=== PATIENT | male | born 1950 | race Caucasian/White ===

== ENCOUNTER 2016-09-10 11:56 | Inpatient (IN) | payer OTHER ==
--- NOTE | ~2016-09-10 | CN ---
Consultation Report [facility] [address] [place]. [address] NAME: GUIDO KELLEY : 52 STATUS : ADM Vaishali PAT#: [id number] AGE: 65 ADM/REG DATE : 09/10/16 MR#: [id number] REPORT SERV DATE: 09/11/16 DICTATED BY: JOVANY WILLIAMSON IV DATE: 09/11/16 REPORT STATUS : Draft TRANSCRIBED BY: MODL DATE: 09/11/16 PULMONARY CONSULTATION DATE OF CONSULTATION: 09/11/2016 REASON FOR REQUEST: Hemoptysis and recent pulmonary embolism. HISTORY OF PRESENT ILLNESS: History is obtained from the patient and records. Mr. Kelley is a 65-year-old male with a history of COPD, obstructive sleep apnea, hypoxemia, diabetes mellitus, coronary artery disease, paroxysmal atrial fibrillation, thrombocytopenia, tobacco dependency, status post recent prolonged hospitalization at [facility] for respiratory failure with DVT, pulmonary embolism, MRSA pneumonia, who now presents with hemoptysis. The patient reportedly decompensated during an EP study in early July at [facility]. He had a prolonged hospitalization being discharged on 08/31/2016. Complications included DVT and pulmonary embolism as well as MRSA pneumonia and a relatively prolonged intubation. The patient underwent two cardiac ablations during that hospitalization and was placed on Eliquis both for the paroxysmal atrial fibrillation as well as the DVT and pulmonary embolism. He was at [facility] when he developed increased shortness of breath and had several days of cough which he reports of discolored mucus and then admits his visual acuity is quite poor. He noted after a long paroxysm of coughing blood which he thought was streaked though the nurse reports was about a tablespoon of predominantly blood, the last episode was earlier this morning. He denies any fevers, chills, sweats, or aspiration. The patient has noted increasing peripheral edema. He had acute kidney injury during the hospitalization and it is not clear whether a diuretic therapy was held at that time. He is on supplemental oxygen at 2 to 3 L at all time and does have bronchodilator medications which he uses. Symbicort as listed; however, he does not recall receiving this at [facility]. The patient carries a diagnosis of obstructive sleep apnea of unclear severity. There was completely intolerant of CPAP therapy. PULMONARY HISTORY: Remarkable for no history of childhood asthma. He carries a diagnosis of adult COPD though he has not had pulmonary function studies in several years. He has had pneumonia on three occasions. He is a more than [id number] smoker, who continues to smoke intermittently even at [facility]. He is reportedly up-to-date on his seasonal influenza vaccine as well as pneumococcal vaccinations. PAST MEDICAL HISTORY: 1. COPD. 2. Obstructive sleep apnea. 3. Hypoxemia. 4. Diabetes mellitus. 5. Coronary artery disease. 6. Paroxysmal atrial fibrillation. Consultation Report [facility] [facility] [address] [place]. [address] NAME: GUIDO KELLEY : 52 STATUS : ADM Vaishali PAT#: [id number] AGE: 65 ADM/REG DATE : 09/10/16 MR#: [id number] REPORT SERV DATE: 09/11/16 DICTATED BY: JOVANY WILLIAMSON IV DATE: 09/11/16 REPORT STATUS : Draft TRANSCRIBED BY: ESE DATE: 09/11/16 7. Thrombocytopenia. 8. Tobacco dependency. 9. Recent acute kidney injury. 10.Pulmonary embolism/DVT. 11.Recent respiratory failure requiring ventilation. SURGERIES: The patient underwent cardiac stent placement. He has undergone two cardiac ablations. ALLERGIES: LISTED ARE PREVACID AND PERCOCET. CURRENT MEDICATIONS: Cordarone 200 mg daily, Cymbalta 60 mg daily, Dulera 2 puffs twice a day, Flexeril 10 mg three times a day, vancomycin per Pharmacy, Levemir 5 units at bedtime, Lopressor 50 mg q.6 hours, Neurontin 400 mg four times a day, level 1 insulin sliding scale, Pravachol 40 mg daily, Protonix 40 mg twice a day, Remeron 30 mg at bedtime, Sinemet at bedtime, and vitamin D. SOCIAL HISTORY: Remarkable for the tobacco use as above. The patient was an alcoholic until two years ago and reportedly stopped. There is no illicit drug use. He is single and has no children. FAMILY HISTORY: Remarkable for father with lung cancer and COPD. Mother with some gastric process with significant weight loss which the family thought was cancer; however, the mother refused evaluation. REVIEW OF SYSTEMS: 14 systems were reviewed. Pertinent positives as noted above. PHYSICAL EXAMINATION: GENERAL: This is an obese, elderly male, appearing older than his stated age, in no current respiratory distress though on supplemental oxygen. VITAL SIGNS: Temperature is 98, pulse is 63, respiratory rate is 15, saturations are 100% on 3 L via nasal cannula, and blood pressure is 143/78. HEENT: The patient is normocephalic, atraumatic. Extraocular movements are intact. Pupils do react to light. He has nasal cannula in place. He has dry nasal mucosa with thick slightly discolored mucus, however, no blood at this time though that was reported in the past. He has blood staining in his mouth. He is a Mallampati III airway with narrowing of the posterior pharyngeal space. NECK: Without any palpable lymphadenopathy or thyromegaly. CHEST: The patient has decreased breath sounds symmetrically. There are some basilar inspiratory crackles. Decreased breath sounds at both extreme bases. Expiratory phase is slightly prolonged. No wheezes are noted. CARDIOVASCULAR: Jugular venous pulsations are at the angle of jaw on the semirecumbent position. He has 1+ carotid upstrokes. No obvious bruit. He has a very distant regular S1, S2 with no clear murmur or S3. Peripheral pulses are diminished. Consultation Report [address] [place]. [address] NAME: GUIDO KELLEY : 52 STATUS : ADM Vaishali PAT#: [id number] AGE: 65 ADM/REG DATE : 09/10/16 MR#: [id number] REPORT SERV DATE: 09/11/16 DICTATED BY: JOVANY WILLIAMSON IV DATE: 09/11/16 REPORT STATUS : Draft TRANSCRIBED BY: ESE DATE: 09/11/16 ABDOMEN: Obese, soft, and nontender. There are hypoactive bowel sounds. There is no palpable hepatosplenomegaly or masses. EXTREMITIES: Demonstrate right lower extremity larger than left lower extremity with at least 2+ pitting edema. No cyanosis, clubbing, or palpable cords. NEUROLOGIC: The patient is able to move all extremities. Strength is 5-/5 and symmetric. Sensation is decreased in a stocking distribution. LABORATORY DATA: Chest CT scan demonstrates bilateral pleural effusions with a left lower lobe infiltrate. There is no significantly enlarged adenopathy. The interpretation is of no pulmonary embolism; however, there is clot in the right lower lobe with an addendum to follow by Radiology. No suspicious masses or nodules are noted. There is at least moderate central lobular emphysematous changes. Hemoglobin is 8.9, hematocrit 28.9, platelet count was 108,000, and white blood cell count is 4.7. INR is 1.8. PTT is 39.8. Chemistries are sodium 145, potassium 3.8, chloride 110, bicarbonate 31, BUN 21, creatinine 0.97, glucose of 91. Procalcitonin level was 0.06. BNP was elevated at 390. Troponin is less than 0.02. Blood gases shows pH 7.43, pCO2 of 40, pO2 of 92 on 3 L. ASSESSMENT AND PLAN: 1. Respiratory. The patient may have a source in the left lower lobe based on the infiltrate. Eliquis will be placed on hold. Bronchoscopy will be performed in the morning to look for endobronchial source. Add Spiriva one capsule daily with the emphysema noted on chest CT scan. Oxygen has been titrated maintaining saturations in the 90% to 94% range. Salt water nasal spray will be given to his nose with previous description of blood in the nares. BiPAP can be given as needed. The patient was reportedly completely intolerant of CPAP and is not interested in further evaluation with a sleep apnea. 2. Infectious disease. We will repeat procalcitonin level tomorrow. Continue antibiotics for now. Florastor will be given one twice a day. 3. Hematologic. Platelet count is low though stable. We will follow the hemoglobin and hematocrit. 4. Neurologic. Thiamine will be given with the debilitated state and his previous alcohol dependency. Multivitamin will be given daily. Smoking cessation were discussed for more than 5 minutes with the adverse cardiopulmonary effects of ongoing tobacco use, even by his report, minimal at this time. 5. Cardiovascular. The patient has bilateral effusions with peripheral edema. We would recommend initiation of some gentle diuresis. We will continue his other cardiac medications for his atrial fibrillation. 6. Renal. Creatinine is normalized with diuresis as noted above. Mag and phosphate level will be obtained tomorrow. Thank you for consulting us. We will follow the patient with you. Consultation Report [place] [address] [place] [address] NAME: GUIDO KELLEY : 52 STATUS : ADM Vaishali PAT#: [id number] AGE: 65 ADM/REG DATE : 09/10/16 MR#: [id number] REPORT SERV DATE: 09/11/16 DICTATED BY: JOVANY WILLIAMSON IV DATE: 09/11/16 REPORT STATUS : Draft TRANSCRIBED BY: ESE DATE: 09/11/16 BINDU/ESE Jovany Williamson IV, M.D. / [id number] CC: Augusto Francis M.D. UNKNOWN
--- NOTE | ~2016-09-10 | DS ---
Discharge Summary [facility] [address] [place]. [address] NAME: GUIDO KELLEY : 52 STATUS : DIS IN PAT#: [id number] AGE: 65 ADM/REG DATE : 09/10/16 MR#: [id number] REPORT SERV DATE: 09/21/16 DICTATED BY: Darion POWERS DATE: 09/18/16 REPORT STATUS : Draft TRANSCRIBED BY: ESE DATE: 09/18/16 ADMISSION DATE: 09/10/2016 DISCHARGE DATE: 09/18/2016 CONSULTANTS: Dr. Nhan Williamson, Pulmonology. DISCHARGE DIAGNOSES: 1. Hemoptysis, resolved. 2. Questionable pneumonia with recent MRSA pneumonia with prolonged ventilation at [facility]. 3. Chronic obstructive pulmonary disease. 4. Obstructive sleep apnea. 5. Pulmonary embolus. 6. Paroxysmal atrial fibrillation. 7. Status post ablation. 8. Thrombocytopenia with anemia. 9. Right foot and right forearm wounds. 10.History of coronary artery disease, status post stent. 11.Legally blind, secondary to macular degeneration. HISTORY OF PRESENT ILLNESS: For complete history, please see admission H and P by Dr. Augusto Francis and interim discharge summary by myself on 09/15/2016. This discharge summary covers dates 09/16/2016, through 09/18/2016. Briefly Mr. Kelley continued to improve over the weekend. He had no new complaints, no new issues. Dr. Williamson discontinued his BiPAP. He is to have an outpatient sleep study performed once he is out of rehab. I did speak with his niece, Patti Torres, earlier today. She informed me that Mr. Kelley has had intermittent confusion since he was weaned off the ventilator at [facility]. I did inform Ms. Torres that Mr. Kelley would be transferring back to [facility] today. When I saw the patient this morning, he was in no acute distress. He was sitting on the side of the bed about to eat breakfast. He denied any symptoms of shortness of breath, chest pain, abdominal pain, or really any other symptoms. His vital signs were stable. Blood pressure 126/65, pulse 68, respirations 18, he was afebrile, and O2 saturation was 99% on 2 liters. His lungs were clear to auscultation with some diminished breath sounds in the left lower lobe. He was in sinus rhythm. He had dressings on his right forearm wound as well as the right foot wound. LABORATORY STUDIES: Today sodium 143, potassium 3.9, chloride 105, bicarb 33, BUN 15, creatinine 1.25, GFR 70, glucose 89, and magnesium 2.4. CBC revealed a white count of 5.1, hemoglobin 9.6, hematocrit 31.7, and platelets 132,000. DISCHARGE INSTRUCTIONS: Include 1. Diet 2000 calorie ADA diet is ordered. 2. Activity as tolerated with Physical Therapy and Occupational Therapy evaluating and treating. Discharge Summary [facility] [address] [place]. [address] NAME: GUIDO KELLEY : 52 STATUS : DIS IN PAT#: [id number] AGE: 65 ADM/REG DATE : 09/10/16 MR#: [id number] REPORT SERV DATE: 09/21/16 DICTATED BY: Darion POWERS DATE: 09/18/16 REPORT STATUS : Draft TRANSCRIBED BY: ESE DATE: 09/18/16 3. Discharge medications which are as follows:. a. Eliquis 5 mg p.o. b.i.d. b. Amiodarone 200 mg p.o. daily. c. Sinemet 25/100 mg one p.o. daily at bedtime. d. Vitamin D 400 units p.o. b.i.d. e. Cymbalta 60 mg p.o. daily. f. Lasix 20 mg p.o. daily. g. Gabapentin 800 mg p.o. every eight hours. h. Magnesium oxide 400 mg p.o. daily. i. Remeron 30 mg p.o. daily at bedtime. j. Multivitamin 1 p.o. daily. k. Lopressor 25 mg p.o. b.i.d., hold for heart rate of less than 60. l. Prilosec 20 mg p.o. b.i.d. m. Potassium 10 mEq p.o. daily with Lasix. n. Pravachol 40 mg p.o. daily at bedtime. o. Florastor 1 cap p.o. b.i.d. p. [place] nasal spray t.i.d. and p.r.n. q. Spiriva 18 mcg powder 1 cap inhaled daily. r. Symbicort 160/4.5, two puffs b.i.d., rinse mouth after each inhalation. s. Tylenol 650 mg p.o. or p.r. q.4 hours p.r.n. t. Flexeril 10 mg p.o. t.i.d. p.r.n. u. Melatonin 5 mg at bedtime p.r.n. I. Glucagon 1 mg IM p.r.n. hypoglycemia protocol. v. Glucose tablets 3 p.o. p.r.n. I. Nitroglycerin 0.4 mg sublingual p.r.n. chest pain. w. Albuterol multidose inhaler two puffs p.r.n. x. Albuterol nebulizers q.2 hours p.r.n. aa. Aspirin 81 mg p.o. daily. ab. Sliding scale level 1 before each meal. No sliding scale insulin coverage at bedtime. 1. Other discharge instructions include Mr. Kelley will follow up with his primary care provider after discharge from rehab and he does have a followup appointment scheduled with Dr. Jennings on September 21. He is asked to keep this appointment. DICTATED BY: BHAKTI Hassan DICTATED FOR: Radha Farias/ESE BHAKTI Hassan Darion Powers M.D. Discharge Summary [address] [address] NAME: GUIDO KELLEY : 52 STATUS : DIS IN PAT#: [id number] AGE: 65 ADM/REG DATE : 09/10/16 MR#: [id number] REPORT SERV DATE: 09/21/16 DICTATED BY: Darion POWERS DATE: 09/18/16 REPORT STATUS : Draft TRANSCRIBED BY: ESE DATE: 09/18/16 / [id number] CC: Radha Painting M.D. [facility] Rylan De Luna MD
--- NOTE | ~2016-09-10 | OP ---
Record Of Operation [facility] [address] [place]. [address] NAME: GUIDO KELLEY : 52 STATUS : ADM Vaishali PAT#: [id number] AGE: 65 ADM/REG DATE : 09/10/16 MR#: [id number] REPORT SERV DATE: 09/12/16 DICTATED BY: JOVANY WILLIAMSON IV DATE: 09/12/16 REPORT STATUS : Draft TRANSCRIBED BY: ESE DATE: 09/12/16 DATE OF PROCEDURE: 09/12/2016 PREOPERATIVE DIAGNOSIS: Hemoptysis. POSTOPERATIVE DIAGNOSIS: No significant blood below the vocal cords with a slightly sanguinous return on BAL of the left lower lobe in the area of unknown infiltrate. PROCEDURE: Diagnostic bronchoscopy with BAL of the left lower lobe. INDICATIONS: Reported hemoptysis with left lower lobe infiltrate on chest CT scan. CONTRAINDICATIONS: None. CONSENT: The risks, benefits, and alternative evaluations were discussed with the patient. Possible complications were reviewed to include though not limited to, air leak around the lung, worsening of his oxygenation, bleeding, infection, and even potentially . The patient agreed to the procedure with the consent signed, and witnessed on the front of the chart. PREOPERATIVE LABS: The patient's platelet count was a 109,000. INR was 1.4. METHOD: The patient was taken to the bronchoscopy suite of [facility] and prepared in usual manner. Anesthesiology was consulted to provide airway management as well as sedation. This was provided with propofol via an LMA airway. Once the airway was secured, the bronchoscope was advanced through the LMA without difficulty. LMA sat appropriately on the vocal cords and epiglottis. A total of 18 mL of 2% lidocaine solution was used throughout the procedure to provide airway and vocal cord anesthesia. Airway mucosa was diffusely boggy with some extrinsic narrowing of several airways particularly the right upper lobe bronchus. There was anatomic variant of a two-segment right upper lobe and a three-segment left upper lobe. The superior segment came off the bronchus intermedius proximal to the takeoff of the right middle lobe. There was blood staining on the vocal cords, which seemed to move appropriately with respiratory effort. There was no blood noted below the vocal cords throughout the examination of all the airways. There was no endobronchial lesions or significant secretions. After inspection occurred, the bronchoscope was placed into the left lower lobe bronchus with BAL performed with return of approximately 40 mL of slightly sanguineous fluid. This will be sent for cytology as well as for cultures. The patient otherwise tolerated the procedure well with no blood loss from the procedure itself. He will be sent to recovery. We will likely re-initiate Eliquis tomorrow if there is no significant bleeding. BINDU/ESE Jovany Williamson Record Of Operation [facility] [address] [facility] [address] [place]. [address] NAME: GUIDO KELLEY : 52 STATUS : ADM Vaishali PAT#: [id number] AGE: 65 ADM/REG DATE : 09/10/16 MR#: [id number] REPORT SERV DATE: 09/12/16 DICTATED BY: JOVANY WILLIAMSON IV DATE: 09/12/16 REPORT STATUS : Draft TRANSCRIBED BY: ESE DATE: 09/12/16 Radha CHENG / [id number] CC: Darion Cooper M.D.
--- NOTE | ~2016-09-10 | HP ---
History And Physical [place] [address] [facility] [place]. [address] NAME: GUIDO KELLEY : 52 STATUS : ADM Vaishali PAT#: [id number] AGE: 65 ADM/REG DATE : 09/10/16 MR#: [id number] REPORT SERV DATE: 09/10/16 DICTATED BY: GREGORY JOHNSON DATE: 09/10/16 REPORT STATUS : Draft TRANSCRIBED BY: MODL DATE: 09/10/16 DATE OF ADMISSION: 09/10/2016 CHIEF COMPLAINT: Possible hemoptysis. HISTORY OF PRESENT ILLNESS: The patient is a 65-year-old male. He has a complicated recent hospital stay at [facility]. He was transferred here from [facility] for complaint of hemoptysis. Basically, the patient spent approximately a month at [facility] for atrial fibrillation. He was undergoing an invasive study when he became hypotensive. Apparently, developed pneumonia, respiratory failure, was on a ventilator, developed renal failure. He was being ruled out for heparin-induced thrombocytopenia. He had a possible GI bleed and was diagnosed with a pulmonary embolism. After that prolonged hospital stay, he was transferred to [facility]. He felt like he was doing well. He was transferred there on the 08/31/2016. He was expecting to go home on Sunday, however he started coughing up blood. He states, it was bright red blood, not a large quantity. He states, it was mostly mixed with sputum, it was more of a through the entire sputum more so than flecking of the sputum. He was not sure of the source. He was not really coughing. He was not having a fever. He was having some sinus symptoms, but nothing extreme. Apparently, it did not worsen through the weekend him, but did not resolve. He states, it had not been any worse, so he was transferred to the emergency room for evaluation. Here, he was evaluated and is being admitted for continued hemoptysis. He states, he otherwise feels fine. He does not feel like his breathing has been worse. He does not really report any pain in his sinus throat or lungs. As mentioned above, he has not had any cough. He denies any fever, chills. He has not noticed any blood in his stools or any other source of bleeding or complications with his Eliquis. PAST MEDICAL HISTORY: In addition to above, he also has diabetes. PAST SURGICAL HISTORY: He has had no recent surgeries. CURRENT MEDICATIONS: Are as follows: Amiodarone 200 mg a day, aspirin 81 one per day, BiPAP 12/5 with a rate of 4 with an O2 of 3 L while asleep, Brovana inhaler, budesonide 1 mg twice a day, Sinemet 25/100 one at bedtime, Flexeril one 10 mg t.i.d., Cymbalta 60 mg one per day, DuoNebs, Eliquis 5 mg twice a day, Neurontin 800 four times a day, sliding scale insulin, Januvia 50 once a day, Lantus 5 at bedtime, metoprolol 50 four times daily, Remeron 30 at bedtime, Prilosec 20, Pravachol 40, Symbicort 160/4.5 two puffs twice daily, Ventolin inhaler, vitamin D 400, melatonin 5 p.r.n., milk of mag p.r.n., Percocet p.r.n. ALLERGIES: LISTED LATANOPROST AND PERCOCET. FAMILY HISTORY: Parents . SOCIAL HISTORY: Previous history of EtOH. REVIEW OF SYSTEMS: HEENT: The patient complains of some "sinus symptoms". CARDIOVASCULAR: Chest pain, palpitations. History And Physical [address] [address] NAME: GUIDO KELLEY : 52 STATUS : ADM Vaishali PAT#: [id number] AGE: 65 ADM/REG DATE : 09/10/16 MR#: [id number] REPORT SERV DATE: 09/10/16 DICTATED BY: GREGORY JOHNSON DATE: 09/10/16 REPORT STATUS : Draft TRANSCRIBED BY: MODMere DATE: 09/10/16 PULMONARY: Of course hemoptysis, but no significant cough. GI: No nausea, vomiting. : He reports some hesitancy, otherwise unremarkable. NEUROMUSCULOSKELETAL: No significant complaints. Otherwise, 10-point review of systems is negative. PHYSICAL EXAMINATION: VITAL SIGNS: BP 147/64, temp 98, pulse 60, respirations 22. GENERAL: He is awake, alert, and oriented. HEENT: Normocephalic, atraumatic. Sclerae nonicteric. Oropharynx, he has a large amount of dried blood in his mouth, it is difficult to determine if it is primary or secondary or both his tongue is very dry and cracked, but the majority of the blood that is on his hard palate, tongue, and lips is dried and crusted. NECK: Supple. HEART: Regular rate and rhythm. LUNGS: Clear to auscultation anteriorly. ABDOMEN: Nontender, nondistended. EXTREMITIES: He has bandages noted to his right lower extremity and some edema. LABORATORY DATA: ABG; pH 7.43, CO2 of 40, O2 of 92, bicarb 25.7. Procalcitonin is 0.06. Sodium is 145, potassium 3.8, chloride 110, CO2 of 31, BUN and creatinine 21 and 0.97 with a glucose of 91. Troponin is less than 0.02. BNP is 388. Lactate is 0.9. White count is 5.3, H and H are 8.9 and 29.4 with platelets of 115. INR is 1.8. CTA of the chest shows no CTA evidence of pulmonary embolism, patchy infiltrates involving a significant portion of the left lower lobe with the exception of partial sparing of the superior segment most consistent with a left lower pneumonia in the appropriate clinical setting, underlying small to-moderate pleural effusion, segmental size atelectasis right lower lobe, and underlying [id number] right pleural effusion, subsegmental atelectasis posterior segment right upper lobe, cardiomegaly, and large main pulmonary artery consistent with CT evidence of pulmonary arterial hypertension. Chest x-ray showing pulmonary venous hypertension with early interstitial pulmonary edema. ASSESSMENT: Hemoptysis in a 65-year-old male, with history of chronic obstructive pulmonary disease, on anticoagulation for atrial fibrillation and pulmonary embolism presents with hemoptysis. PLAN: 1. The patient has been admitted. 2. We will consult Pulmonary. 3. Oral hygiene to see if some of this bleeding is primary or secondary in his mouth. 4. We will discuss with Pulmonary, continue his anticoagulants. 5. If pulmonary evaluation is negative, may consider GI source as this was noted, but felt secondary to his NG tube. 6. Low platelet count, but he had ruled out on his previous hospitalization. 7. No overt symptoms of infection at this time. Close clinical monitoring. History And Physical [address] [place]. [address] NAME: GUIDO KELLEY : 52 STATUS : ADM Vaishali PAT#: [id number] AGE: 65 ADM/REG DATE : 09/10/16 MR#: [id number] REPORT SERV DATE: 09/10/16 DICTATED BY: GREGORY JOHNSON DATE: 09/10/16 REPORT STATUS : Draft TRANSCRIBED BY: ESE DATE: 09/10/16 TLF/ESE Gregory Johnson M.D. / [id number] CC: Gregory Johnson M.D.
--- NOTE | ~2016-09-10 | IDS ---
Interim Discharge Summary [facility] [address] [place]. [address] NAME: GUIDO KELLEY : 52 STATUS : ADM IN [facility]#: [id number] AGE: 65 ADM/REG DATE : 09/10/16 MR#: [id number] REPORT SERV DATE: 09/16/16 DICTATED BY: Darion POWERS DATE: 09/15/16 REPORT STATUS : Draft TRANSCRIBED BY: MODL DATE: 09/15/16 ADMISSION DATE: 09/10/2016 DISCHARGE DATE: CONSULTANTS: Dr. Nhan Williamson, Pulmonary. INTERIM DIAGNOSES: 1. Questionable pneumonia with recent methicillin-resistant Staphylococcus aureus pneumonia and prolonged ventilation at [facility]. 2. Hemoptysis. 3. Chronic obstructive pulmonary disease. 4. Obstructive sleep apnea. 5. Pulmonary embolus. 6. Atrial fibrillation, status post ablation. 7. Thrombocytopenia with anemia. 8. History of coronary artery disease, status post stent. 9. Right foot and right forearm wounds. 10.Legally blind secondary to macular degeneration. PROCEDURES: 09/12/2016, the patient underwent a diagnostic bronchoscopy with BAL of the left lower lobe. IMAGING AND DIAGNOSTICS: 1. 09/10/2016, CTA of the chest for hemoptysis with addendum to the CTA showing an incompletely obstructing small peripheral thrombus within a subsegmental pulmonary artery anterior basal segment right lower lobe. Otherwise, the CTA reported no PE initially with patchy infiltrates involving a significant portion of the left lower lobe with the exception of partial sparing superior segment most consistent with a left lower lobe pneumonia, underlying small moderate pleural effusion with subsegmental atelectasis right lower lobe and [id number] right pleural effusion with atelectasis in the posterior segment of the right upper lobe; cardiomegaly with moderate coronary artery calcifications, enlarged main pulmonary artery consistent with CT evidence of pulmonary arterial hypertension. 2. 09/14/2016, chest x-ray showed vascular congestion improved, atelectasis infiltrate and/or effusion in the left lung base is mildly worse. HISTORY OF PRESENT ILLNESS: For complete history, please refer to admission H and P by Dr. Augusto Francis. Briefly, Mr. Kelley is a 65-year-old gentleman who had a complicated past hospitalization and stay at [facility]. After his [facility] admission for AFib and MRSA pneumonia and prolonged mechanical ventilation and possible GI bleed, he did have a pulmonary embolism. After his stay at [facility], he was transferred to [facility]. He was sent to [facility] on 09/10/2016 for possible hemoptysis. The Hospitalist Service was contacted for admission for further evaluation and treatment. HOSPITAL COURSE: Mr. Kelley was admitted to [facility] initially with the diagnosis of hemoptysis and COPD. On admission, consult was placed to Pulmonary. Blood cultures, sputum cultures, Interim Discharge Summary [address] [address] NAME: GUIDO KELLEY : 52 STATUS : ADM IN [facility]#: [id number] AGE: 65 ADM/REG DATE : 09/10/16 MR#: [id number] REPORT SERV DATE: 09/16/16 DICTATED BY: Darion POWERS DATE: 09/15/16 REPORT STATUS : Draft TRANSCRIBED BY: ESE DATE: 09/15/16 and chest x-ray were all ordered along with IV antibiotics for an assumed health-care associated pneumonia. Mr. Kelley was seen in consultation by Dr. Nhan Williamson on 09/11/2016. Dr. Williamson placed the patient n.p.o. after midnight for bronchoscopy with BAL the following day. I initially saw the patient post his bronchoscopy on the . He was receiving IV antibiotics, supplemental oxygen as well as nebulizers and inhaled steroids. It is noted that he is a diabetic, his A1c is 5.1. His blood sugars were in the 80s and I discontinued his 5 units of Levemir at bedtime. Since his admission to the hospital, he has been in sinus rhythm. His Eliquis for history of DVT and PE was restarted by Dr. Williamson after his bronchoscopy. The bronchial lavage culture has shown very sparse growth of Pseudomonas. The patient was on again vancomycin and cefepime initially; however, his vancomycin was discontinued earlier this week and today, Dr. Williamson has written discontinuation of the cefepime after today's dose. Mr. Kelley has continued to improve over the week. On the 09/14/2016, he had some periods of intermittent confusion with periods of complete lucidity. He was on scheduled Flexeril, this was changed to p.r.n. and his Neurontin dose of 800 mg four times a day was decreased to 800 mg t.i.d. He does have this right forearm wound and wound on the top of his right foot. These are being treated with local wound care. There was some question whether or not these could have been caused by his alogliptin that he was taking for his diabetes. Therefore, this was discontinued on the 09/14/2016. This medication is noted to have adverse effects such as development of blisters or erosions in the skin. This medication should not be restarted. DISPOSITION: Current disposition is for the patient to return to [facility] at the time of discharge, which will likely be Sunday. He currently does wear a BiPAP at night and per Dr. Williamson, will likely need a repeat sleep study to qualify for BiPAP. His procalcitonin is negative and Dr. Williamson gallops the pneumonia and believes he is likely colonized with this sparse growth of Pseudomonas from the bronchial lavage. So at this time, again, discharge will be to [facility] likely on Sunday. DICTATED BY: CARINA Hassan-VENANCIO YODER/ESE Darion Powers M.D. / [id number] CC: Darion Powers M.D.
[~2016-09-10 11:56] MED LIST: ADVAIR250 INH; AMB10 PO; C25 PO; C5 PO; CYMBALTA30 PO; HALF81 PO; JANUVIA100 MG PO; LOP50 PO; MAX25 PO; NEUR300 PO; NORCO1 TA1 PO; PRAVACHOL40 MG PO; PRILO PO; RYTHMOL150 MG PO; SPIRIVA INH; VITAMIN C100 MG PO; VITAMIN D1000 UNI1 PO; ZESTRIL20 MG PO; [UNRECOGNIZED DRUG - REMARK]
[2016-09-10] MEDS ORDERED: ENDOCET1 TA1 PO (13:00)
[2016-09-10] MEDS ORDERED: MELATONIN5 M1 PO (13:01)
[2016-09-10] MEDS ORDERED: VITAMIN D400 UNI1 PO (13:03)
[2016-09-10] MEDS ORDERED: VENTOLIN HFA INH (13:07)
[2016-09-10] MEDS ORDERED: PRAVACHOL40 MG PO (13:08)
[2016-09-10] MEDS ORDERED: SYMBICORT 160/41 INH INH (13:08)
[2016-09-10] MEDS ORDERED: REMERON30 MG PO (13:09)
[2016-09-10] MEDS ORDERED: PRILOSEC OTC20 MG PO (13:09)
[2016-09-10] MEDS ORDERED: LANTUSCART SC (13:09)
[2016-09-10] MEDS ORDERED: LOP50 PO (13:10)
[2016-09-10] MEDS ORDERED: HUMALOGPEN SC (13:10)
[2016-09-10] MEDS ORDERED: DUONEB INH (13:11)
[2016-09-10] MEDS ORDERED: NEUR800 PO (13:11)
[2016-09-10] MEDS ORDERED: JANUVIA50 PO (13:11)
[2016-09-10] MEDS ORDERED: ELIQUIS 5 MG TAB5 MG PO (13:12)
[2016-09-10] MEDS ORDERED: SIN25 PO (13:13)
[2016-09-10] MEDS ORDERED: FLEX PO (13:13)
[2016-09-10 13:14] LABS: BASOPHILS 0.4 %; BASOPHILS ABSOLUTE 0.02 10/3/uL (0.0-0.16); EOSINOPHILS 0.6 %; EOSINOPHILS ABSOLUTE 0.03 10/3/uL (0.0-0.53); HEMATOCRIT 29.4 % (40.0-51.0); HEMOGLOBIN 8.9 g/dL (13.6-17.8); IMMATURE GRANULOCYTES 0.2 %; IMMATURE GRANULOCYTES ABSOLUTE 0.01 10/3/uL (0.0-0.11); LYMPHOCYTES ABSOLUTE 0.84 10/3/uL (0.67-4.30); MEAN CORPUS HGB CONC 30.3 g/dL (32.0-36.0); MEAN CORPUSCULAR HEMOGLOB 29.2 pg (26.0-34.0); MEAN CORPUSCULAR VOLUME 96.4 fL (80-100); MEAN PLATELET VOLUME 10.8 fL (9.2-13.0); MONOCYTES 10.6 %; MONOCYTES ABSOLUTE 0.56 10/3/uL (0.21-1.20); NEUTROPHILS 72.2 %; RBC DISTRIBUTION WIDTH 17.5 % (12.0-16.0); RED CELL COUNT 3.05 10/6/uL (4.7-6.1); WHITE BLOOD CELLS 5.3 10/3/uL (4.5-10.5)
[2016-09-10] MEDS ORDERED: ASAB PO (13:14)
[2016-09-10] MEDS ORDERED: CYMBALTA60 PO (13:14)
[2016-09-10] MEDS ORDERED: CORDARONE PO (13:14)
[2016-09-10 13:16] LABS: MANUAL DIFF NO %; PLATELET COUNT 115 10/3/uL (150-400)
[2016-09-10 13:21] LABS: INTERNATIONAL NORMAL RATI 1.8 UNITS (-); PARTIAL THROMBO TIME 39.8 SEC (22.5-37.2)
[2016-09-10 13:25] LABS: PROTIME (NOT ORD) 20.5 SEC (12.0-14.5)
[2016-09-10 13:30] LABS: ALKALINE PHOSPHATASE 54 U/L (45-117); CALCIUM, SERUM 8.5 MG/DL (8.5-10.4); CHLORIDE, SERUM 110 MMOL/L (96-112); CO2 (CARBON DIOXIDE) 31 MMOL/L (24-34); CREATININE 0.97 MG/DL (0.70-1.30); GFR AFRICAN AMERICAN 95 ML/MIN (>=60); GFR NON AFRICAN AMERICAN 82 ML/MIN (>=60); GLUCOSE, SERUM 91 MG/DL (60-99); POTASSIUM, SERUM 3.8 MMOL/L (3.5-5.3); SGOT(AST) 12 U/L (5-40); SGPT(ALT) 16 U/L (5-65); SODIUM, SERUM 145 MMOL/L (135-148); TOTAL PROTEIN 5.6 G/DL (6.0-8.5); TROPONIN I <0.02 NG/ML (<0.05)
[2016-09-10 13:31] LABS: A/G RATIO 0.8 (0.7-1.9); ALBUMIN 2.5 G/DL (3.5-5.0); BUN (BLOOD UREA NITROGEN) 21 MG/DL (6-23); GLOBULIN 3.1 G/DL (2.5-4.1); LACTATE 0.9 MMOL/L (0.3-2.4); TOTAL BILIRUBIN 1.1 MG/DL (0-1.2)
[2016-09-10 13:43] LABS: BE (BASE EXCESS) 1.3 MEQ/L (0 +/- 2.5); CARBOXYHEMOGLOBIN 1.8 % (0-3); DEVICE NC; HCO3 (ACTUAL BICARBONATE) 25.7 MEQ/L (23-27); HEMOBLOGIN CONTENT 9.4 G/DL (14-18); INSTRUMENT SERIAL # 8087; METHEMOGLOBIN 0.4 % (0-3); O2 CONTENT 12.6 VOL% (18-24); OPERATOR ID 35859; PCO2 (CO2 TENSION) 40 MMHG (35-45); PO2 (O2 TENSION) 92 MMHG (79-93); SAMPLE Arterial; pH 7.43 (7.37-7.43)
[2016-09-10 13:44] LABS: ALLENS TEST Pos
[2016-09-10 13:45] LABS: PROCALCITONIN 0.06 ng/mL (<0.5)
[2016-09-11 04:11] LABS: BASOPHILS 0.9 %; BASOPHILS ABSOLUTE 0.04 10/3/uL (0.0-0.16); EOSINOPHILS 0.9 %; EOSINOPHILS ABSOLUTE 0.04 10/3/uL (0.0-0.53); HEMATOCRIT 28.9 % (40.0-51.0); HEMOGLOBIN 8.9 g/dL (13.6-17.8); IMMATURE GRANULOCYTES 0.4 %; IMMATURE GRANULOCYTES ABSOLUTE 0.02 10/3/uL (0.0-0.11); LYMPHOCYTES 18.3 %; LYMPHOCYTES ABSOLUTE 0.86 10/3/uL (0.67-4.30); MEAN CORPUS HGB CONC 30.8 g/dL (32.0-36.0); MEAN CORPUSCULAR HEMOGLOB 29.4 pg (26.0-34.0); MEAN CORPUSCULAR VOLUME 95.4 fL (80-100); MEAN PLATELET VOLUME 11.5 fL (9.2-13.0); MONOCYTES 10.4 %; MONOCYTES ABSOLUTE 0.49 10/3/uL (0.21-1.20); NEUTROPHILS 69.1 %; NEUTROPHILS ABSOLUTE 3.24 10/3/uL (2.02-8.40); PLATELET COUNT 108 10/3/uL (150-400); RBC DISTRIBUTION WIDTH 17.5 % (12.0-16.0); RED CELL COUNT 3.03 10/6/uL (4.7-6.1); WHITE BLOOD CELLS 4.7 10/3/uL (4.5-10.5)
[2016-09-11 04:22] LABS: MANUAL DIFF NO %
[2016-09-12 03:52] LABS: BASOPHILS 0.5 %; BASOPHILS ABSOLUTE 0.02 10/3/uL (0.0-0.16); EOSINOPHILS 1.4 %; EOSINOPHILS ABSOLUTE 0.06 10/3/uL (0.0-0.53); HEMATOCRIT 28.4 % (40.0-51.0); HEMOGLOBIN 8.6 g/dL (13.6-17.8); IMMATURE GRANULOCYTES 0.2 %; IMMATURE GRANULOCYTES ABSOLUTE 0.01 10/3/uL (0.0-0.11); LYMPHOCYTES 18.9 %; LYMPHOCYTES ABSOLUTE 0.79 10/3/uL (0.67-4.30); MEAN CORPUS HGB CONC 30.3 g/dL (32.0-36.0); MEAN CORPUSCULAR HEMOGLOB 29.2 pg (26.0-34.0); MEAN CORPUSCULAR VOLUME 96.3 fL (80-100); MEAN PLATELET VOLUME 10.6 fL (9.2-13.0); MONOCYTES 9.8 %; MONOCYTES ABSOLUTE 0.41 10/3/uL (0.21-1.20); NEUTROPHILS 69.2 %; NEUTROPHILS ABSOLUTE 2.88 10/3/uL (2.02-8.40); PLATELET COUNT 109 10/3/uL (150-400); RBC DISTRIBUTION WIDTH 16.9 % (12.0-16.0); RED CELL COUNT 2.95 10/6/uL (4.7-6.1); WHITE BLOOD CELLS 4.2 10/3/uL (4.5-10.5)
[2016-09-12 03:58] LABS: MANUAL DIFF NO %
[2016-09-12 04:00] LABS: INTERNATIONAL NORMAL RATI 1.4 UNITS (-)
[2016-09-12 04:01] LABS: PROTIME (NOT ORD) 16.8 SEC (12.0-14.5)
[2016-09-12 04:14] LABS: ALBUMIN 2.3 G/DL (3.5-5.0); BUN (BLOOD UREA NITROGEN) 19 MG/DL (6-23); CALCIUM, SERUM 8.4 MG/DL (8.5-10.4); CHLORIDE, SERUM 111 MMOL/L (96-112); CO2 (CARBON DIOXIDE) 30 MMOL/L (24-34); CREATININE 0.89 MG/DL (0.70-1.30); FREE T4 1.39 NG/DL (0.76-1.46); GFR AFRICAN AMERICAN 105 ML/MIN (>=60); GFR NON AFRICAN AMERICAN 90 ML/MIN (>=60); GLUCOSE, SERUM 101 MG/DL (60-99); PHOSPHORUS, SERUM 3.2 MG/DL (2.5-4.5); POTASSIUM, SERUM 3.4 MMOL/L (3.5-5.3); SODIUM, SERUM 146 MMOL/L (135-148)
[2016-09-12 06:12] LABS: PROCALCITONIN <0.05 ng/mL (<0.5)
[2016-09-13 05:59] LABS: BASOPHILS 0.5 %; BASOPHILS ABSOLUTE 0.02 10/3/uL (0.0-0.16); EOSINOPHILS ABSOLUTE 0.08 10/3/uL (0.0-0.53); HEMATOCRIT 29.1 % (40.0-51.0); IMMATURE GRANULOCYTES 0.3 %; IMMATURE GRANULOCYTES ABSOLUTE 0.01 10/3/uL (0.0-0.11); LYMPHOCYTES 19.8 %; LYMPHOCYTES ABSOLUTE 0.78 10/3/uL (0.67-4.30); MANUAL DIFF NO %; MEAN CORPUS HGB CONC 30.9 g/dL (32.0-36.0); MEAN CORPUSCULAR HEMOGLOB 29.5 pg (26.0-34.0); MEAN CORPUSCULAR VOLUME 95.4 fL (80-100); MEAN PLATELET VOLUME 10.6 fL (9.2-13.0); MONOCYTES 13.5 %; MONOCYTES ABSOLUTE 0.53 10/3/uL (0.21-1.20); NEUTROPHILS 63.9 %; NEUTROPHILS ABSOLUTE 2.52 10/3/uL (2.02-8.40); PLATELET COUNT 111 10/3/uL (150-400); RBC DISTRIBUTION WIDTH 16.9 % (12.0-16.0); RED CELL COUNT 3.05 10/6/uL (4.7-6.1); WHITE BLOOD CELLS 3.9 10/3/uL (4.5-10.5)
[2016-09-13 06:12] LABS: BUN (BLOOD UREA NITROGEN) 16 MG/DL (6-23); CALCIUM, SERUM 8.5 MG/DL (8.5-10.4); CHLORIDE, SERUM 109 MMOL/L (96-112); CO2 (CARBON DIOXIDE) 31 MMOL/L (24-34); CREATININE 1.06 MG/DL (0.70-1.30); GFR AFRICAN AMERICAN 86 ML/MIN (>=60); GFR NON AFRICAN AMERICAN 74 ML/MIN (>=60); GLUCOSE, SERUM 98 MG/DL (60-99); SODIUM, SERUM 145 MMOL/L (135-148)
[2016-09-13 06:15] LABS: POTASSIUM, SERUM 4.3 MMOL/L (3.5-5.3)
[2016-09-14 07:17] LABS: BASOPHILS 0.4 %; BASOPHILS ABSOLUTE 0.02 10/3/uL (0.0-0.16); EOSINOPHILS 2.2 %; HEMATOCRIT 30.3 % (40.0-51.0); HEMOGLOBIN 9.3 g/dL (13.6-17.8); IMMATURE GRANULOCYTES 0.2 %; IMMATURE GRANULOCYTES ABSOLUTE 0.01 10/3/uL (0.0-0.11); LYMPHOCYTES 19.3 %; LYMPHOCYTES ABSOLUTE 0.89 10/3/uL (0.67-4.30); MEAN CORPUS HGB CONC 30.7 g/dL (32.0-36.0); MEAN CORPUSCULAR HEMOGLOB 29.5 pg (26.0-34.0); MEAN CORPUSCULAR VOLUME 96.2 fL (80-100); MEAN PLATELET VOLUME 10.9 fL (9.2-13.0); MONOCYTES 12.8 %; MONOCYTES ABSOLUTE 0.59 10/3/uL (0.21-1.20); NEUTROPHILS 65.1 %; PLATELET COUNT 109 10/3/uL (150-400); RED CELL COUNT 3.15 10/6/uL (4.7-6.1); WHITE BLOOD CELLS 4.6 10/3/uL (4.5-10.5)
[2016-09-14 07:19] LABS: MANUAL DIFF NO %
[2016-09-14 07:41] LABS: BUN (BLOOD UREA NITROGEN) 13 MG/DL (6-23); CALCIUM, SERUM 8.5 MG/DL (8.5-10.4); CHLORIDE, SERUM 106 MMOL/L (96-112); CO2 (CARBON DIOXIDE) 31 MMOL/L (24-34); CREATININE 0.98 MG/DL (0.70-1.30); GFR AFRICAN AMERICAN 94 ML/MIN (>=60); GFR NON AFRICAN AMERICAN 81 ML/MIN (>=60); GLUCOSE, SERUM 87 MG/DL (60-99); POTASSIUM, SERUM 3.7 MMOL/L (3.5-5.3); SODIUM, SERUM 143 MMOL/L (135-148)
[2016-09-14 08:33] LABS: PROCALCITONIN <0.05 ng/mL (<0.5)
[2016-09-14 15:37] LABS: BE (BASE EXCESS) 9.6 MEQ/L (0 +/- 2.5); HEMOBLOGIN CONTENT 10.2 G/DL (14-18); INSTRUMENT SERIAL # 8083; METHEMOGLOBIN 0.2 % (0-3); O2 CONTENT 13.4 VOL% (18-24); PCO2 (CO2 TENSION) 40 MMHG (35-45); PO2 (O2 TENSION) 68 MMHG (79-93); SAMPLE Arterial; pH 7.54 (7.37-7.43)
[2016-09-15 06:58] LABS: BASOPHILS 0.8 %; BASOPHILS ABSOLUTE 0.04 10/3/uL (0.0-0.16); EOSINOPHILS 2.1 %; HEMATOCRIT 31.9 % (40.0-51.0); HEMOGLOBIN 9.8 g/dL (13.6-17.8); IMMATURE GRANULOCYTES 0.6 %; IMMATURE GRANULOCYTES ABSOLUTE 0.03 10/3/uL (0.0-0.11); LYMPHOCYTES 22.4 %; LYMPHOCYTES ABSOLUTE 1.07 10/3/uL (0.67-4.30); MEAN CORPUS HGB CONC 30.7 g/dL (32.0-36.0); MEAN CORPUSCULAR HEMOGLOB 29.3 pg (26.0-34.0); MEAN CORPUSCULAR VOLUME 95.2 fL (80-100); MEAN PLATELET VOLUME 10.9 fL (9.2-13.0); MONOCYTES 11.7 %; MONOCYTES ABSOLUTE 0.56 10/3/uL (0.21-1.20); NEUTROPHILS 62.4 %; NEUTROPHILS ABSOLUTE 2.98 10/3/uL (2.02-8.40); PLATELET COUNT 112 10/3/uL (150-400); RBC DISTRIBUTION WIDTH 17.1 % (12.0-16.0); RED CELL COUNT 3.35 10/6/uL (4.7-6.1); WHITE BLOOD CELLS 4.8 10/3/uL (4.5-10.5)
[2016-09-15 07:01] LABS: MANUAL DIFF NO %
[2016-09-15 07:08] LABS: ALBUMIN 2.3 G/DL (3.5-5.0); BUN (BLOOD UREA NITROGEN) 13 MG/DL (6-23); CALCIUM, SERUM 8.7 MG/DL (8.5-10.4); CHLORIDE, SERUM 104 MMOL/L (96-112); CO2 (CARBON DIOXIDE) 29 MMOL/L (24-34); CREATININE 0.97 MG/DL (0.70-1.30); GFR AFRICAN AMERICAN 95 ML/MIN (>=60); GFR NON AFRICAN AMERICAN 82 ML/MIN (>=60); GLUCOSE, SERUM 83 MG/DL (60-99); PHOSPHORUS, SERUM 2.8 MG/DL (2.5-4.5); POTASSIUM, SERUM 3.8 MMOL/L (3.5-5.3); SODIUM, SERUM 140 MMOL/L (135-148)
[2016-09-16 08:41] LABS: BASOPHILS 0.2 %; BASOPHILS ABSOLUTE 0.01 10/3/uL (0.0-0.16); EOSINOPHILS 3.1 %; EOSINOPHILS ABSOLUTE 0.16 10/3/uL (0.0-0.53); HEMATOCRIT 30.3 % (40.0-51.0); HEMOGLOBIN 9.4 g/dL (13.6-17.8); IMMATURE GRANULOCYTES 0.4 %; IMMATURE GRANULOCYTES ABSOLUTE 0.02 10/3/uL (0.0-0.11); LYMPHOCYTES ABSOLUTE 0.88 10/3/uL (0.67-4.30); MEAN CORPUSCULAR HEMOGLOB 29.1 pg (26.0-34.0); MEAN CORPUSCULAR VOLUME 93.8 fL (80-100); MEAN PLATELET VOLUME 10.8 fL (9.2-13.0); MONOCYTES 9.6 %; NEUTROPHILS 69.7 %; NEUTROPHILS ABSOLUTE 3.62 10/3/uL (2.02-8.40); PLATELET COUNT 133 10/3/uL (150-400); RBC DISTRIBUTION WIDTH 17.1 % (12.0-16.0); RED CELL COUNT 3.23 10/6/uL (4.7-6.1); WHITE BLOOD CELLS 5.2 10/3/uL (4.5-10.5)
[2016-09-16 08:42] LABS: MANUAL DIFF NO %
[2016-09-16 08:57] LABS: BUN (BLOOD UREA NITROGEN) 15 MG/DL (6-23); CALCIUM, SERUM 8.9 MG/DL (8.5-10.4); CHLORIDE, SERUM 104 MMOL/L (96-112); CO2 (CARBON DIOXIDE) 28 MMOL/L (24-34); CREATININE 1.01 MG/DL (0.70-1.30); GFR AFRICAN AMERICAN 91 ML/MIN (>=60); GFR NON AFRICAN AMERICAN 78 ML/MIN (>=60); GLUCOSE, SERUM 80 MG/DL (60-99); POTASSIUM, SERUM 3.4 MMOL/L (3.5-5.3); SODIUM, SERUM 140 MMOL/L (135-148)
[2016-09-17 05:40] LABS: BASOPHILS 0.4 %; BASOPHILS ABSOLUTE 0.02 10/3/uL (0.0-0.16); EOSINOPHILS 2.6 %; EOSINOPHILS ABSOLUTE 0.13 10/3/uL (0.0-0.53); HEMATOCRIT 31.7 % (40.0-51.0); HEMOGLOBIN 9.6 g/dL (13.6-17.8); IMMATURE GRANULOCYTES 0.4 %; IMMATURE GRANULOCYTES ABSOLUTE 0.02 10/3/uL (0.0-0.11); LYMPHOCYTES 26.1 %; LYMPHOCYTES ABSOLUTE 1.32 10/3/uL (0.67-4.30); MANUAL DIFF NO %; MEAN CORPUS HGB CONC 30.3 g/dL (32.0-36.0); MEAN CORPUSCULAR HEMOGLOB 28.7 pg (26.0-34.0); MEAN CORPUSCULAR VOLUME 94.9 fL (80-100); MEAN PLATELET VOLUME 10.6 fL (9.2-13.0); MONOCYTES 11.9 %; NEUTROPHILS 58.6 %; NEUTROPHILS ABSOLUTE 2.96 10/3/uL (2.02-8.40); PLATELET COUNT 132 10/3/uL (150-400); RBC DISTRIBUTION WIDTH 17.1 % (12.0-16.0); RED CELL COUNT 3.34 10/6/uL (4.7-6.1); WHITE BLOOD CELLS 5.1 10/3/uL (4.5-10.5)
[2016-09-17 05:45] LABS: BUN (BLOOD UREA NITROGEN) 13 MG/DL (6-23); CALCIUM, SERUM 9.2 MG/DL (8.5-10.4); CHLORIDE, SERUM 105 MMOL/L (96-112); CO2 (CARBON DIOXIDE) 26 MMOL/L (24-34); GFR AFRICAN AMERICAN 82 ML/MIN (>=60); GFR NON AFRICAN AMERICAN 71 ML/MIN (>=60); GLUCOSE, SERUM 81 MG/DL (60-99); POTASSIUM, SERUM 3.6 MMOL/L (3.5-5.3); SODIUM, SERUM 143 MMOL/L (135-148)
[2016-09-18 05:19] LABS: ALBUMIN 2.6 G/DL (3.5-5.0); BUN (BLOOD UREA NITROGEN) 15 MG/DL (6-23); CALCIUM, SERUM 9.1 MG/DL (8.5-10.4); CHLORIDE, SERUM 105 MMOL/L (96-112); CO2 (CARBON DIOXIDE) 28 MMOL/L (24-34); CREATININE 1.25 MG/DL (0.70-1.30); GFR AFRICAN AMERICAN 70 ML/MIN (>=60); GFR NON AFRICAN AMERICAN 60 ML/MIN (>=60); GLUCOSE, SERUM 89 MG/DL (60-99); PHOSPHORUS, SERUM 3.9 MG/DL (2.5-4.5); POTASSIUM, SERUM 3.9 MMOL/L (3.5-5.3); SODIUM, SERUM 143 MMOL/L (135-148)
[2016-10-31] MEDS ORDERED: SACU1TAB7 PO (21:02)
[2016-10-31] MEDS ORDERED: KDUR20 PO (21:03)
[2016-10-31] MEDS ORDERED: L20 PO (21:03)
[2016-10-31] MEDS ORDERED: CYMBALTA60 PO (21:03)
[2016-10-31] MEDS ORDERED: VENTOLIN HFA INH (21:04)
[2016-10-31] MEDS ORDERED: SPIRIVA INH (21:04)
[2016-10-31] MEDS ORDERED: SYMBICORT 160/41 INH INH (21:04)
[2016-10-31] MEDS ORDERED: ASAB PO (21:05)
[2016-10-31] MEDS ORDERED: CORDARONE PO (21:05)
[2016-10-31] MEDS ORDERED: SIN25 PO (21:06)
[2016-10-31] MEDS ORDERED: NEUR800 PO (21:06)
[2016-10-31] MEDS ORDERED: ELIQUIS 5 MG TAB5 MG PO (21:06)
[2016-10-31] MEDS ORDERED: MAGOX4 PO (21:07)
[2016-10-31] MEDS ORDERED: REMERON30 MG PO (21:08)
[2016-10-31] MEDS ORDERED: LOP25 PO (21:08)
[2016-10-31] MEDS ORDERED: FLORASTOR250 MG PO (21:08)
[2016-10-31] MEDS ORDERED: PRAVACHOL40 MG PO (21:08)
[2016-10-31] MEDS ORDERED: PRILO PO (21:10)
[2016-10-31] MEDS ORDERED: K500 PO (21:11)
[2016-10-31] MEDS ORDERED: VITAMIN D400 UNI1 PO (21:16)
[2016-10-31] MEDS ORDERED: FLEX PO (21:17)
[2016-10-31] MEDS ORDERED: THERGRANM PO (21:17)
[2016-10-31] MEDS ORDERED: NITROSTAT0.4 MG SL (21:17)
[2016-10-31] MEDS ORDERED: WOUND TOP (21:23)
[2016-11-19] MEDS ORDERED: X25 PO (11:13)
[2016-11-19] MEDS ORDERED: DUONEB INH (11:14)
[2016-11-19] MEDS ORDERED: BUM1 PO (11:20)
[2016-11-19] MEDS ORDERED: DSS PO (11:21)
[2016-11-19] MEDS ORDERED: FERROUS SULF325 M1 PO (11:22)
[2016-11-19] MEDS ORDERED: NORCO1 TA1 PO (11:27)
[2016-11-19] MEDS ORDERED: FLOMAX4 PO (11:28)
[2016-12-18] MEDS ORDERED: SYMM100 PO (20:09)
[2016-12-18] MEDS ORDERED: CORDARONE PO (20:10)
[2016-12-18] MEDS ORDERED: BUM1 PO (20:10)
[2016-12-18] MEDS ORDERED: BUSPAR10 PO (20:11)
[2016-12-18] MEDS ORDERED: SIN25 PO (20:11)
[2016-12-18] MEDS ORDERED: CYMBALTA60 PO (20:12)
[2016-12-18] MEDS ORDERED: DSS PO (20:12)
[2016-12-18] MEDS ORDERED: PROSCAR5 PO (20:13)
[2016-12-18] MEDS ORDERED: FLORASTOR250 MG PO (20:13)
[2016-12-18] MEDS ORDERED: FERROUS SULF325 M1 PO (20:13)
[2016-12-18] MEDS ORDERED: DUONEB INH (20:14)
[2016-12-18] MEDS ORDERED: NEUR800 PO (20:14)
[2016-12-18] MEDS ORDERED: CLORTIMAZOLE TOP (20:17)
[2016-12-18] MEDS ORDERED: MAGOX4 PO (20:19)
[2016-12-18] MEDS ORDERED: LOP25 PO (20:20)
[2016-12-18] MEDS ORDERED: REMERON30 MG PO (20:20)
[2016-12-18] MEDS ORDERED: HABIT7 TOP (20:22)
[2016-12-18] MEDS ORDERED: PRILOSEC OTC20 MG PO (20:23)
[2016-12-18] MEDS ORDERED: KDUR20 PO (20:23)
[2016-12-18] MEDS ORDERED: PRAVACHOL40 MG PO (20:23)
[2016-12-18] MEDS ORDERED: SPIRIVA INH (20:24)
[2016-12-18] MEDS ORDERED: SYMBICORT 160/41 INH INH (20:25)
[2016-12-18] MEDS ORDERED: FLOMAX4 PO (20:25)
[2016-12-18] MEDS ORDERED: THERA M PLUS PO (20:25)
[2016-12-18] MEDS ORDERED: VITC500 PO (20:26)
[2016-12-18] MEDS ORDERED: SANCTURA20 MG PO (20:26)
[2016-12-18] MEDS ORDERED: VITAMIN D400 UNI1 PO (20:27)
[2016-12-18] MEDS ORDERED: ZOSYN4.5 IV (20:28)
[2016-12-18] MEDS ORDERED: T PO (20:30)
[2016-12-18] MEDS ORDERED: X5 PO (20:31)
[2016-12-18] MEDS ORDERED: BELLA/OPIUM PR (20:32)
[2016-12-18] MEDS ORDERED: MOMUD PO (20:33)
[2016-12-18] MEDS ORDERED: BISR PR (20:33)
[2016-12-18] MEDS ORDERED: VENTOLIN HFA INH (20:34)
[2016-12-18] MEDS ORDERED: OXYCOD PO (20:34)
== END 2016-09-18 15:07 | DRG 166 ==
LOC: ER 11:56 → CDU1 15:22 → CDU2 18:20 → 1SO 09-13 17:04
PROVIDERS: Emergency Medicine; Family Medicine; Internal Medicine; Internal Medicine Critical Care Medicine; Urology
PROC: 0B9J8ZX Drainage of Left Lower Lung Lobe, Via Natural or Artificial Opening Endoscopic, Diagnostic (ICD-10-PCS; principal; 2016-09-12 09:30)
DX: J44.0 Chronic obstructive pulmonary disease with (acute) lower respiratory infection (principal); J18.9 Pneumonia, unspecified organism; I26.99 Other pulmonary embolism without acute cor pulmonale; N17.9 Acute kidney failure, unspecified; D61.818 Other pancytopenia; D68.9 Coagulation defect, unspecified; J98.11 Atelectasis; D69.6 Thrombocytopenia, unspecified; E83.42 Hypomagnesemia; E66.01 Morbid (severe) obesity due to excess calories; I48.91 Unspecified atrial fibrillation; G62.9 Polyneuropathy, unspecified; E11.9 Type 2 diabetes mellitus without complications; J44.9 Chronic obstructive pulmonary disease, unspecified; D64.9 Anemia, unspecified; S51.801A Unspecified open wound of right forearm, initial encounter; G47.33 Obstructive sleep apnea (adult) (pediatric); S90.821A Blister (nonthermal), right foot, initial encounter; Z68.36 Body mass index [BMI] 36.0-36.9, adult; E87.6 Hypokalemia; H35.30 Unspecified macular degeneration; G25.81 Restless legs syndrome; K21.9 Gastro-esophageal reflux disease without esophagitis; H54.8 Legal blindness, as defined in USA; I25.10 Atherosclerotic heart disease of native coronary artery without angina pectoris; Z79.82 Long term (current) use of aspirin; Z79.01 Long term (current) use of anticoagulants; Z79.4 Long term (current) use of insulin; Z79.899 Other long term (current) drug therapy; Z98.61 Coronary angioplasty status; Z86.14 Personal history of Methicillin resistant Staphylococcus aureus infection; Z86.711 Personal history of pulmonary embolism; Z88.5 Allergy status to narcotic agent; Z88.8 Allergy status to other drugs, medicaments and biological substances
CPT/HCPCS: 36600; 71010; 71020; 71275; 80048; 80053; 80069; 80202; 82805; 82962; 83605; 83735; 83880; 84145; 84439; 84443; 84484; 85025; 85610; 85730; 87015; 87040; 87070; 87077; 87102; 87116; 87186; 87205; 88112; 93005; 94640; 94660; 97116-GP; 97162-GP; 99285; A9270-GY; G8978-CK-GP; G8979-CJ-GP; J0692; J1120; J3370; J3411; J3475; Q9967